=== PATIENT | male | born 2000 | race Caucasian/White ===

== ENCOUNTER 2019-06-29 18:58 | Emergency (ER) | payer BC ==
--- NOTE | 2019-06-29 19:36 | UC ---
General HPI - HPI Summary HPI Summary: 19-year-old male comes in with a chief complaint of feeling very shaky and lightheaded. This started within the last hour. Denies any chest pain or palpitations. He felt a little lightheaded when he stood up. Patient did eat quite today. Both meals or fast food. Reports drinking alcohol last evening. - History of Current Complaint Chief Complaint: UCGeneralIllness Stated Complaint: DIZZINESS, SHAKY Time Seen by Provider: 06/29/19 19:18 Pain Intensity: 0 - Allergy/Home Medications Allergies/Adverse Reactions: Allergies Allergy/AdvReac Type Severity Reaction Status Date / Time No Known Allergies Allergy Verified 06/29/19 19:21 Home Medications: Home Medications Valacyclovir HCl [Valtrex] 500 mg PO DAILY 06/29/19 [History Confirmed 06/29/19] PMH/Surg Hx/FS Hx/Imm Hx Previously Healthy: Yes - Surgical History Surgical History: None Surgery Procedure, Year, and Place: tonsilectomy - Family History Known Family History: Positive: Non-Contributory - Social History Alcohol Use: Occasionally Substance Use Type: None Smoking Status (MU): Never Smoked Tobacco Review of Systems All Other Systems Reviewed And Are Negative: Yes Constitutional: Positive: Other - SEE HPI Skin: Positive: Negative Eyes: Positive: Negative ENT: Positive: Negative Respiratory: Positive: Negative Cardiovascular: Positive: Negative Gastrointestinal: Positive: Negative Genitourinary: Positive: Negative Motor: Positive: Negative Neurovascular: Positive: Negative Musculoskeletal: Positive: Negative Neurological: Positive: Negative Psychological: Positive: Negative Is Patient Immunocompromised?: No Physical Exam Triage Information Reviewed: Yes Appearance: Well-Appearing, No Pain Distress, Well-Nourished Vital Signs: Initial Vital Signs Temp 99.2 F 06/29/19 19:16 Pulse 92 06/29/19 19:16 Resp 16 06/29/19 19:16 BP 128/80 06/29/19 19:16 Pulse Ox 100 06/29/19 19:16 Vital Signs Reviewed: Yes Eye Exam: Normal Eyes: Positive: Conjunctiva Clear Neck: Positive: Supple Respiratory: Positive: Lungs clear, Normal breath sounds, No respiratory distress Cardiovascular: Positive: RRR Musculoskeletal: Positive: Strength Intact, ROM Intact Neurological: Positive: Alert, Muscle Tone Normal Psychological: Positive: Age Appropriate Behavior Skin Exam: Normal Course/Dx - Course Course Of Treatment: In clinic the patient ate some crackers drink some apple juice and rested. His orthostatic vital signs are normal he is feeling better. Possible causes for feeling shakiness or the coming off of the alcohol from yesterday or perhaps transient hyponatremia from drinking too much water. His heart rate was regular did not appreciate any dysrhythmias. Plan is to rest and get reevaluated if worse or any questions or concerns. - Diagnoses Provider Diagnosis: Shakiness Discharge ED - Sign-Out/Discharge Documenting (check all that apply): Patient Departure All imaging exams completed and their final reports reviewed: No Studies - Discharge Plan Condition: Stable Disposition: HOME [facility] [Outside] Additional Instructions: FOLLOW UP WITH YOUR DOCTOR IF NOT COMPLETELY IMPROVED. GET RECHECKED SOONER IF WORSE OR ANY QUESTIONS OR CONCERNS. - Billing Disposition and Condition Condition: STABLE Disposition: Home
[2019-06-29 20:19] VITALS: BP 121/77
== END 2019-06-29 20:33 | disposition home or self-care (01) ==
LOC: UCCORT 18:58
DX: R25.1 Tremor, unspecified (principal)
CPT/HCPCS: 99202; G0463